=== PATIENT | female | born 1945 | race Caucasian/White ===

== ENCOUNTER 2017-07-04 14:10 | Observation (INO) ==
--- NOTE | 2017-07-04 14:32 | Emergency Department Note ---
Disposition Clinical Impression: CVA (cerebral vascular accident) Qualifiers: CVA mechanism: unspecified Qualified Code(s): I63.9 - Cerebral infarction, unspecified Disposition: Admitted As Inpatient Condition: Fair Referrals: Diana Giron MD [Primary Care Provider] - Forms: ED Satisfaction Letter Time of Disposition: 15:07 Neuro HPI - General Chief Complaint: ED Neuro Symptoms/Deficit Stated Complaint: Confusion Time Seen by Provider: 07/04/17 14:23 Source: patient, family Mode of arrival: ambulatory Limitations: no limitations Nursing Notes Reviewed: Yes Vital Signs Reviewed: Yes - History of Present Illness HPI Narrative: 72-year-old with acute onset of difficulty speaking with expressive aphasia at 11 AM. Denies weakness or numbness otherwise. Onset of Symptoms Date: 07/04/17 Onset of Symptoms Time: 11:00 Symptom Onset Unknown: No Timing confirmed by: spouse Location: speech History of same: No Severity: moderate Quality: other (Expressive aphasia) Symptoms Improving: No Improves with: none Worsens with: none Context: sudden onset On Anticoagulants: No Associated symptoms: Reports: denies other symptoms Treatments Prior to Arrival: none - Related Data Home Medications: Home Medications Medication Instructions Recorded Confirmed Aspirin 81 mg PO DAILY 04/12/16 04/12/16 Cetirizine HCl [Zyrtec] 10 mg PO HS 04/12/16 04/12/16 Chlorthalidone 25 mg PO DAILY 04/12/16 04/12/16 Estradiol [Estrace] 1 mg PO HS 04/12/16 04/12/16 Fluticasone Propionate Nasal 2 spr NS BID 04/12/16 04/12/16 [Flonase] Ipratropium [place] 1 spr NS DAILY PRN 04/12/16 04/12/16 Montelukast [Singulair] 10 mg PO HS 04/12/16 04/12/16 Potassium Chloride [Klor-Con 10] 10 meq PO TID 04/12/16 04/12/16 Allergies/Adverse Reactions: Allergies Allergy/AdvReac Type Severity Reaction Status Date / Time Tetracycline Allergy See Verified 04/12/16 09:10 Comments doxycycline AdvReac see comment Verified 04/12/16 09:10 All systems ED: reviewed and negative except as stated. Constitutional: Denies: fever, chills, weakness, weight change Eyes: Denies: eye pain, eye discharge, vision change ENT ED: Denies: ear pain, throat pain, dental pain, hearing loss, epistaxis, congestion, dysphagia Cardiovascular: Denies: chest pain, palpitations, dyspnea on exertion, edema, syncope Respiratory: Denies: cough, dyspnea, wheezes, hemoptysis, stridor Gastrointestinal: Denies: abdominal pain, nausea, vomiting, diarrhea, constipation, hematemesis, melena, hematochezia Genitourinary: Denies: dysuria, frequency, hematuria, discharge Musculoskeletal: Denies: back pain, neck pain, arthralgia, myalgia Integumentary: Denies: rash, abrasion, lesions Neurological: Reports: other (Suppressive aphasia). Denies: headache, weakness , numbness, paresthesias, confusion, abnormal gait, vertigo Psychiatric: Denies: anxiety, depression, suicidal thoughts, homicidal thoughts , auditory hallucinations, visual hallucinations Endocrine: Denies: fatigue Hematological/Lymphatic: Denies: easy bleeding, easy bruising Allergic/Immunologic: Denies: facial swelling, urticaria Past Medical History - Past Medical History Medical history: Reports: hyperlipidemia, hypertension Surgical history: Reports: appendectomy Psychiatric history: Reports: no psych history - Social History Smoking Status: Never smoker Smokeless Tobacco Status: No Alcohol use: Reports: none Drug use: Reports: none Physical Exam - General Limitations: no limitations General appearance: alert - Head Head exam: atraumatic, normocephalic, normal inspection - Eye Eye exam: Present: normal appearance, PERRL, EOMI - ENT ENT exam: normal exam, normal oropharynx, mucous membranes moist - Neck Neck exam: Present: normal inspection, full ROM, trachea midline - Chest Chest inspection: Present: normal inspection, symmetric chest wall rise - Respiratory Respiratory exam: Present: normal lung sounds bilaterally - Cardiovascular Cardiovascular exam: Present: regular rate, normal rhythm, normal heart sounds - Abdominal Exam Abdominal exam: Present: soft, Non-Tender. Absent: tenderness, distention, guarding, rebound, rigidity - Extremities Exam Extremities exam: Present: normal inspection, full ROM. Absent: tenderness, pedal edema - Expanded Lower Extremity Exam Neurovascular/Tendon exam: Absent: motor deficit, sensory deficit, tendon deficit Gait: observed and normal - Back Exam Back exam: Present: normal inspection, full ROM. Absent: tenderness - Neurological Exam Neurological exam: Present: alert, oriented X3. Absent: motor sensory deficit - Psychiatric Psychiatric exam: Present: normal affect, normal mood - Skin Skin exam: Present: warm, dry, intact, normal color Course - Consultations Consultation #1: Discussed with Dr. Colon radiology nothing acute on CT scan. Time: 14:51 Consultation #2: Stroke alert by [facility] patient is not a TPA candidate. Recommend CT A of the head and neck. Time: 15:03 Consultation #3: Discussed with Dr. Pittman, admit Time: 16:12 Vital Signs Temperature 97.4 F L 07/04/17 14:13 Pulse Rate 78 07/04/17 14:13 Respiratory Rate 18 07/04/17 14:13 Blood Pressure 181/108 07/04/17 14:13 O2 Sat by Pulse Oximetry 98 07/04/17 14:13 Temperature 97.4 F L 07/04/17 14:13 Pulse Rate 77 07/04/17 14:44 Respiratory Rate 18 07/04/17 14:44 Blood Pressure 170/87 07/04/17 14:44 O2 Sat by Pulse Oximetry 98 07/04/17 14:13 Oxygen Delivery Oxygen Delivery Room Air Neuro Symptoms/Deficit - Lab Data Result diagrams: 07/04/17 14:41 07/04/17 14:41 Lab Results 07/04/17 07/04/17 07/04/17 Range/Units 14:22 14:41 14:41 WBC 16.2 H (4.3-11.1) K/mcL RBC 4.38 (3.82-4.97) M/mcL Hgb 13.2 (11.5-15.4) g/dL Hct 39.3 (35.3-44.9) % MCV 89.7 (83.0-100.0) fL MCH 30.1 (28.0-33.3) pg MCHC 33.6 (31.6-35.5) g/dL RDW 12.6 (11.5-14.5) % Plt Count 394 (140-400) K/mcL MPV 10.2 (9.4-12.4) fL Immature Gran % 0.5 (0-4) % Seg Neutrophils % 74.7 % Lymphocytes % 14.5 % Monocytes % 7.9 % Eosinophils % 2.0 % Basophils % 0.4 % Neutrophils # 12.1 H (1.6-8.9) K/mcL Lymphocytes # 2.4 (0.6-4.6) K/mcL Monocytes # 1.3 (0.0-1.3) K/mcL Eosinophils # 0.3 (0.0-0.6) K/mcL Basophils # 0.1 (0.0-0.2) K/mcL PT 10.7 (9.4-12.1) Seconds INR 1.0 APTT 33.9 (26.0-36.0) Seconds Sodium (136-145) mEq/L Potassium (3.5-5.1) mEq/L Chloride (98-107) mEq/L Carbon Dioxide (23-29) mEq/L BUN (8-23) mg/dL Creatinine (0.60-1.20) mg/dL Est GFR ( Amer) (> 60) Est GFR (Non-Af Amer) (> 60) BUN/Creatinine Ratio (6-26) Glucose (70-105) mg/dL POC Glucose 112 H (58-89) mg/dL Calculated Osmolality (280-300) Calcium (8.6-10.3) mg/dL Troponin I (< 0.04) ng/mL 07/04/17 Range/Units 14:41 WBC (4.3-11.1) K/mcL RBC (3.82-4.97) M/mcL Hgb (11.5-15.4) g/dL Hct (35.3-44.9) % MCV (83.0-100.0) fL MCH (28.0-33.3) pg MCHC (31.6-35.5) g/dL RDW (11.5-14.5) % Plt Count (140-400) K/mcL MPV (9.4-12.4) fL Immature Gran % (0-4) % Seg Neutrophils % % Lymphocytes % % Monocytes % % Eosinophils % % Basophils % % Neutrophils # (1.6-8.9) K/mcL Lymphocytes # (0.6-4.6) K/mcL Monocytes # (0.0-1.3) K/mcL Eosinophils # (0.0-0.6) K/mcL Basophils # (0.0-0.2) K/mcL PT (9.4-12.1) Seconds INR APTT (26.0-36.0) Seconds Sodium 136 (136-145) mEq/L Potassium 3.3 L (3.5-5.1) mEq/L Chloride 100 (98-107) mEq/L Carbon Dioxide 28 (23-29) mEq/L BUN 17 (8-23) mg/dL Creatinine 0.60 (0.60-1.20) mg/dL Est GFR ( Amer) > 60 (> 60) Est GFR (Non-Af Amer) > 60 (> 60) BUN/Creatinine Ratio 28 H (6-26) Glucose 106 H (70-105) mg/dL POC Glucose (58-89) mg/dL Calculated Osmolality 284 (280-300) Calcium 9.6 (8.6-10.3) mg/dL Troponin I < 0.03 (< 0.04) ng/mL NIH Stroke Scale - Level of Consciousness LOC: Alert - LOC Questions LOC Questions: Answers both correctly - LOC Commands LOC Commands: Performs both correctly - Best Gaze Best Gaze: Normal - Visual Visual: No visual loss - Facial Palsy Facial Palsy: Normal - Motor Arms Motor Arm-Left: No drift for 10 seconds Motor Arm-Right: No drift for 10 seconds - Motor Legs Motor Leg-Left: No drift for 5 seconds Motor Leg-Right: No drift for 5 seconds - Limb Ataxia Limb Ataxia: Normal, No Ataxia - Sensory Sensory: Normal - Best Language Best Language: Mild to moderate aphasia. Examiner can identify picture from response - Dysarthria Dysarthria: Normal - Extinction and Inattention Extinction and Inattention: Normal - NIHSS Total Score NIHSS Total Score: 1 TPA Checklist - Eligibilty for IV tPA 1. LKW equal to or less than 4.5 hours be before treatment: Yes - LKW: 3-4.5 hrs Add. Warnings/Precautions Patient/family understanding: The patient/family members have been counseled and understood the risk, benefit , and alternatives of treatment. Critical Care Time Critical Care Time: Yes Total Critical Care Time: 35 Attestation: The high probability of a clinically significant, sudden or life threatening deterioration of the [neurological] system(s) required my full and direct attention, intervention and personal management. The aggregate critical care time was [35] minutes. This time is in addition to time spent performing reported procedures but includes the following: [x] Data Review and interpretation [x] Patient assessment and monitoring of vital signs [x] Documentation [x] Medication orders and management
[2017-07-04 14:53] LABS: Basophils # 0.1 K/mcL (0.0-0.2); Basophils % 0.4 %; Eosinophils # 0.3 K/mcL (0.0-0.6); Hematocrit 39.3 % (35.3-44.9); Hemoglobin 13.2 g/dL (11.5-15.4); Immature Granulocytes % 0.5 % (0-4); Lymphocytes # 2.4 K/mcL (0.6-4.6); Lymphocytes % 14.5 %; Mean Corpuscular HGB Conc 33.6 g/dL (31.6-35.5); Mean Corpuscular Hemoglobin 30.1 pg (28.0-33.3); Mean Corpuscular Volume 89.7 fL (83.0-100.0); Mean Platelet Volume 10.2 fL (9.4-12.4); Monocytes # 1.3 K/mcL (0.0-1.3); Monocytes % 7.9 %; Neutrophils # 12.1 K/mcL (1.6-8.9); Platelet Count 394 K/mcL (140-400); Red Blood Count 4.38 M/mcL (3.82-4.97); Red Cell Distribution Width 12.6 % (11.5-14.5); Segmented Neutrophils % 74.7 %
[2017-07-04 15:04] LABS: Prothrombin Time 10.7 Seconds (9.4-12.1)
[2017-07-04 15:07] LABS: Activated Partial Thrombo Time 33.9 Seconds (26.0-36.0)
[2017-07-04 15:11] LABS: BUN/Creatinine Ratio 28 (6-26); Blood Urea Nitrogen 17 mg/dL (8-23); Calcium 9.6 mg/dL (8.6-10.3); Carbon Dioxide 28 mEq/L (23-29); Chloride 100 mEq/L (98-107); Glucose 106 mg/dL (70-105); Osmolality,Calculated 284 (280-300); Potassium 3.3 mEq/L (3.5-5.1); Sodium 136 mEq/L (136-145); Troponin I < 0.03 ng/mL (< 0.04); eGFR For African Americans > 60 (> 60); eGFR For Non-African Americans > 60 (> 60)
[2017-07-04 17:03] LABS: Bilirubin,Urine Negative (Negative); Blood,Urine Negative (Negative); Clarity,Urine Clear (Clear); Color,Urine Yellow (Yellow); Glucose,Urine (UA) Normal (Normal); Ketones,Urine Negative (Negative); Leukocyte Esterase,Urine Negative (Negative); Nitrite,Urine Negative (Negative); Protein,Urine Negative (Neg-Trace); Specific Gravity,Urine 1.019 (1.010-1.025); Urobilinogen,Urine Normal (Normal)
[2017-07-04] MEDS ORDERED: Naloxone 0.4 MG/ML INJ IVP PRN (17:59)
[2017-07-04] MEDS ORDERED: Acetaminophen 325 MG TABLET PO PRN (17:59)
[2017-07-04] MEDS ORDERED: Potassium Chloride Elixir 20 MEQ/15 ML UDC PO ONE (18:02)
--- NOTE | 2017-07-04 18:03 | Internal Med History&Physical ---
Date of Encounter: 07/04/17 Time of Encounter: 17:15 Internal Medicine - H&P: HPI Chief complaint: Word-finding difficulty Admitted From: Home Plans for Post Hospital Care: Home History of present illness: Ms. Ken is a 72 year old female with h/o- HTN and HL, who was brought in with c /o- difficulty speaking since this morning. Patient had a rough night due to severe dry cough and so her let her sleep for a few hours after waking up, after which patient was trying to talk to her but could not get the words out. She was noted to be searching for words. No focal weakness, headache, blurred vision, dysphagia, slurred speech or facial droop. On further questioning, her also reports that she had paresthesias in her hands yesterday and had trouble writing a cheque. Last known time of being normal cannot be pinponted. No fever/chills, chest pain, dyspnea, or any other symptoms. Past Med Surg Social Fam HX - Past Medical History Medical history: hyperlipidemia, hypertension Psychiatric history: no psych history - Past Surgical History Surgical History: appendectomy, hysterectomy, orthopedic, other (left rotator cuff repair surgery) - Social History Smoking Status: Never smoker Smokeless Tobacco Status: No Alcohol use: none Drug use: none Occupational status: retired Current living situation: Home, With Family Activity Level: Independent ambulation Recent Out of Country Travel Within the Last 8 Weeks: No Exposure or Possible Exposure to Illness During Travel: No - Family History Mother Name: Erin Alejandro Living Status: Age at : 69 Cause of : heart attack Hx Family Cardiac Disorders: Yes Internal Medicine - H&P: Meds Aspirin 81 mg PO DAILY 04/12/16 [History] Cetirizine HCl [Zyrtec] 10 mg PO HS 04/12/16 [History] Chlorthalidone 25 mg PO DAILY 04/12/16 [History] Estradiol [Estrace] 1 mg PO HS 04/12/16 [History] Fluticasone Propionate Nasal [Flonase] 2 spr NS BID 04/12/16 [History] Ipratropium [place] 1 spr NS DAILY PRN 04/12/16 [History] Montelukast [Singulair] 10 mg PO HS 04/12/16 [History] Potassium Chloride [Klor-Con 10] 20 meq PO BID 04/12/16 [History] Pravastatin Sodium [Pravachol] 20 mg PO HS 07/04/17 [History] 3 Allergy/AdvReac Type Severity Reaction Status Date / Time Tetracycline Allergy See Verified 04/12/16 09:10 Comments doxycycline AdvReac see comment Verified 04/12/16 09:10 All Systems PM: A 10-system review of systems was performed and is negative for pertinent findings except as documented above in the HPI. - Constitutional Constitutional: no chills, no fever(s), no night sweats - EENT Eyes: no change in vision, no discharge, no pain, no photophobia Ears: no ear discharge, no ear pain, no tinnitus Nose, mouth and throat: no dysphagia, no nasal discharge, no neck pain, no sore throat - Cardiovascular Cardiovascular ROS IM: no chest pain, no diaphoresis, no dyspnea, no lightheadedness, no palpitations, no syncope - Respiratory Respiratory: no cough, no dyspnea, no wheezing, no excessive phlegm production - Gastrointestinal Gastrointestinal: no abdominal pain, no diarrhea, no hematemesis, no hematochezia, no melena, no nausea, no vomiting - Genitourinary Genitourinary: no change in urinary stream, no dysuria, no flank pain, no hematuria - Musculoskeletal Musculoskeletal ROS IM: no numbness, no tingling - Integumentary Integumentary IM: no rash, no unusual bruising - Neurological Neurological ROS: abnormal speech, confusion, paresthesias - Hematologic/Lymphatic Hematologic/Lymphatic: no easy bruising - Constitutional Vitals: Temp Pulse Resp BP Pulse Ox 98 F 72 18 144/96 98 07/04/17 14:59 07/04/17 17:03 07/04/17 17:03 07/04/17 17:03 07/04/17 17:03 General appearance: Present: A&O X 3, answers questions appropriately - Respiratory Respiratory exam: Present: CTAB. Absent: accessory muscle use, rales, rhonchi, wheezes - Cardiovascular Cardiovascular exam: Present: RRR, +S1, +S2. Absent: diastolic murmur, gallop, rubs, systolic murmur - GI/Abdominal GI/Abdominal exam: Present: normal bowel sounds, soft, no peritoneal signs. Absent: distended, tenderness - Extremities Exam Extremities exam: Present: full ROM, warm, radial pulses palpable and symmetrical. Absent: calf tenderness, cyanotic, pedal edema - Neurological Exam Neurological exam: Present: CN II-XII intact (mild word-finding difficulty and expressive aphasia), oriented X3, no focal deficits. Absent: pronater drift, facial droop, speech deficit - Skin Skin exam: Present: dry, intact Internal Med - H&P Results - Labs CBC & Chem 7: 07/04/17 14:41 07/04/17 14:41 - Assessment and plan (1) Aphasia Current Visit: Yes Status: Acute Assessment and plan: TIA vs CVA; CT head in the ER showed no acute abnormality. Neurology Stroke consult was completed by [facility], recommend no tPA, check CTA head and neck. CTA of the head showed no acute abnormality, CTA neck shows narrowing of the carotid artery to 4 mm (30%) and 5 mm on right (20%). Will check Carotid Doppler ultrasound; check TTE and consult Neurology. Check lipid panel. Continue ASA and statin. Close neurological monitoring; (2) Essential hypertension Current Visit: Yes Status: Chronic Assessment and plan: BP was noted to be elevated at the time of triage; continue to monitor closely; resume Chlorthalidone; - Time Spent With Patient Total time spent is greater than 50% in coordination of care (as documented) at patient's floor/unit and/or counseling patient:
[2017-07-04] MEDS: Fluticasone Propionate Nasal 50 MCG/SPRAY BOTTLE NS SCH (20:22)
[2017-07-04] MEDS: *HR* Heparin 5,000 UNIT/ML VIAL SQ SCH (22:09)
[2017-07-05 01:26] LABS: Basophils % 0.2 %; Eosinophils # 0.1 K/mcL (0.0-0.6); Eosinophils % 1.1 %; Hemoglobin 11.7 g/dL (11.5-15.4); Immature Granulocytes % 0.3 % (0-4); Lymphocytes # 2.8 K/mcL (0.6-4.6); Lymphocytes % 23.3 %; Mean Corpuscular HGB Conc 33.4 g/dL (31.6-35.5); Mean Corpuscular Hemoglobin 29.5 pg (28.0-33.3); Mean Corpuscular Volume 88.4 fL (83.0-100.0); Mean Platelet Volume 10.6 fL (9.4-12.4); Monocytes % 8.1 %; Neutrophils # 8.1 K/mcL (1.6-8.9); Platelet Count 403 K/mcL (140-400); Red Blood Count 3.96 M/mcL (3.82-4.97); Red Cell Distribution Width 12.7 % (11.5-14.5)
[2017-07-05 01:47] LABS: BUN/Creatinine Ratio 19 (6-26); Blood Urea Nitrogen 11 mg/dL (8-23); Calcium 9.3 mg/dL (8.6-10.3); Carbon Dioxide 27 mEq/L (23-29); Chloride 99 mEq/L (98-107); Chol/HDL Ratio 2.2 (0-4.9); Cholesterol 169 mg/dL (< 200); Glucose 110 mg/dL (70-105); HDL Cholesterol 77 mg/dL (40-59); LDL Cholesterol,Calculated 72 mg/dL (0-99); Osmolality,Calculated 280 (280-300); Potassium 3.2 mEq/L (3.5-5.1); Sodium 135 mEq/L (136-145); Triglycerides 100 mg/dL (< 150); eGFR For African Americans > 60 (> 60); eGFR For Non-African Americans > 60 (> 60)
[2017-07-05] MEDS: *HR* Heparin 5,000 UNIT/ML VIAL SQ SCH ×3 (05:43→21:18)
[2017-07-05] MEDS ORDERED: Potassium Chloride Elixir 20 MEQ/15 ML UDC PO ONE (08:42)
--- NOTE | 2017-07-05 09:15 | Neurology - Consult Note ---
Date of Encounter: 07/05/17 Time of Encounter: 09:11 Assessment and Plan (1) Mental status change Current Visit: Yes Status: Acute Patient had experienced a brief episode of speech difficulty that has resolved. According to the family her speech and affect are just now getting back to normal. She really did not experience any weakness of the upper or lower extremities. However, it is possible that she may have experienced an ischemic event involving the left cerebral hemisphere. Particularly I would like to rule out the possibility of an embolic event involving the left temporal lobe, which could possibly spare motor and sensory function and affect only speech. I will therefore obtain MRI scan of the brain with diffusion images and I am very interested to review the results of the echocardiogram. I will also obtain an EEG. Her blood pressure was extremely elevated at the time of admission where the reading was 181/108. This might also resulted in an ischemic event. If the stroke workup is unrevealing then I would recommend pursuing an underlying infectious process. She has been experiencing excessive coughing for about 5 days or so. Further recommendations will be made pending the test results. Recommend stroke protocol orders in the interim workup. Qualifiers: Qualified Code(s): R41.82 - Altered mental status, unspecified History of Present Illness HPI: Ms. Ken is a 72 year old female who is being seen for neurologic consultation secondary to an episode of confusion and speech difficulty. It seems however that all of her more recent problems were precipitated by her respiratory symptoms. She has been experiencing a progressive cough for about 5 days or so now. Her daughter informs me that over the weekend she had difficulty writing a check and seem to be a bit confused. However she had a severe dry cough the night before admission and she awakened to go downstairs and sleep in a chair because she was uncomfortable. She awakened the next morning however without difficulty and then somewhere around 11:00 in the afternoon on the day of admission she became acutely confused and had some difficulty with speech apparently she had symptoms of expressive aphasia. She denies any numbness tingling or weakness of the arms or legs. Denies any visual changes she does have a headache associated with the excessive coughing she has chronic neck pain. However this does not present meningitis/encephalitis-type picture. Currently she is back to her normal baseline. She is lucid and able to give her own history. I did ask if she taking any [id number] cold remedies and she denies this. She was hypertensive upon admission blood pressure was 181 /108. She did have a CTA of the head and neck which revealed nonstenotic plaquing. Echocardiogram was actually just completed a few moments ago the interpretation is pending. Apparently the [facility] stroke telemonitoring network was accessed and they determined she was not a candidate for TPA. She has not had an MRA. She denies any history of chest pain or any cardiac problems. Denies any history of atrial fibrillation. WBCs were elevated upon admission, urinalysis was unremarkable. Past Med Surg Social Fam HX - Past Medical History Medical history: hyperlipidemia, hypertension Psychiatric history: no psych history - Past Surgical History Surgical History: appendectomy, hysterectomy, orthopedic, other (left rotator cuff repair surgery) - Social History Smoking Status: Never smoker Smokeless Tobacco Status: No Alcohol use: none Drug use: none - Family History Mother Name: Erin Alejandro Living Status: Age at : 69 Cause of : heart attack Hx Family Cardiac Disorders: Yes Medications and Allergies Aspirin 81 mg PO DAILY 04/12/16 [History] Cetirizine HCl [Zyrtec] 10 mg PO HS 04/12/16 [History] Chlorthalidone 25 mg PO DAILY 04/12/16 [History] Estradiol [Estrace] 1 mg PO HS 04/12/16 [History] Fluticasone Propionate Nasal [Flonase] 2 spr NS BID 04/12/16 [History] Ipratropium [place] 1 spr NS DAILY PRN 04/12/16 [History] Montelukast [Singulair] 10 mg PO HS 04/12/16 [History] Potassium Chloride [Klor-Con 10] 20 meq PO BID 04/12/16 [History] Pravastatin Sodium [Pravachol] 20 mg PO HS 07/04/17 [History] 3 Allergy/AdvReac Type Severity Reaction Status Date / Time Tetracycline Allergy See Verified 04/12/16 09:10 Comments doxycycline AdvReac see comment Verified 04/12/16 09:10 All Systems: The remainder of the systems were reviewed and are negative Review of Systems: 10 point review of systems is consistent with a history of present illness and otherwise negative. 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, hip flexors, tibialis Anterior, quadriceps, toe extension (EHL), plantarflexion Motor examination - left side: 55: deltoids, biceps, triceps, wrist flexion, wrist extension, hip flexors, polishing machine operator helper, quadriceps, tibialis Anterior, toe extension (EHL), plantarflexion Detailed sensory examination: intact Reflexes: Biceps: 2+, Triceps: 2+, Brachioradialis: 2+, Patella: 2+, Achilles: 2 + Mental Status Examination: awake, alert, oriented to person, oriented to place, oriented to time, follows commands appropriately, answers questions appropriately, no agnosia, no aphasia, no aproxia Cranial nerve examination: PERRL, EOMI, visual kenyon intact, corneal reflexes brisk symmetrically, sensory to face intact, mastication intact, no facial asymmetry is present, no dysarthria, hearing is intact symmetrically, soft palate elevates bilaterally upon phonation, gag reflex intact, flexes SCM and trapezius muscles symmetrically with full power, tongue protrudes midline, no atrophy or facial fasiculations present Cerebellar examination: no dysmetria, performs finger to nose and heel to dc symmetrically without ataxia, no gait ataxia, no truncal ataxia, no difficulty with rapid alternating movements Results - Laboratory Findings CBC and BMP: 07/05/17 00:35 07/05/17 00:35 Abnormal lab findings: Abnormal lab results WBC 12.0 K/mcL (4.3-11.1) H 07/05/17 00:35 Hct 35.0 % (35.3-44.9) L 07/05/17 00:35 Plt Count 403 K/mcL (140-400) H 07/05/17 00:35 Sodium 135 mEq/L (136-145) L 07/05/17 00:35 Potassium 3.2 mEq/L (3.5-5.1) L 07/05/17 00:35 Creatinine 0.57 mg/dL (0.60-1.20) L 07/05/17 00:35 Glucose 110 mg/dL (70-105) H 07/05/17 00:35 POC Glucose 112 mg/dL (58-89) H 07/04/17 14:22 HDL Cholesterol 77 mg/dL (40-59) H 07/05/17 00:35 Consult Discharge Plan - Plan Referrals: Diana Giron MD [Primary Care Provider] -
[2017-07-05] MEDS: POTASSIUM 10 MEQ PO SCH ×2 (09:27→21:19)
[2017-07-05] MEDS: Aspirin 81 MG TAB.CHEW PO SCH (09:27)
[2017-07-05] MEDS: Fluticasone Propionate Nasal 50 MCG/SPRAY BOTTLE NS SCH ×2 (09:30→21:19)
--- NOTE | 2017-07-05 17:09 | Internal Med Progress Note ---
Date of Encounter: 07/05/17 Time of Encounter: 17:06 - Assessment and plan (1) Aphasia Current Visit: Yes Status: Acute Assessment and plan: positive for CVA per MRI which reported several small acute infarcts primarily involving the left frontal lobe and the vascular distribution of the left middle cerebral artery compatible with acute infarcts, there is a symmetric stenosis noted in the proximal left internal carotid artery on the previous CTA of the neck. This could also be related to small emboli. Ossifications along the left cerebral convexity dura and anterior intrahemispheric falx which may be related to an ossified meningioma. Mild chronic microvascular white matter ischemic disease. CT head in the ER showed no acute abnormality. Neurology Stroke consult was completed by [facility], recommend no tPA CTA head and neck completed and reviewed. CTA of the head showed no acute abnormality, CTA neck shows narrowing of the carotid artery to 4 mm (30%) and 5 mm on right (20%). Carotid Doppler ultrasound report pending TTE reviewed with LVEF 60%, mild left ventricular diastolic dysfunction, normal right ventricular structure and function, mild to moderate tricuspid regurg, mild pulmonary on ache regurg, borderline pulmonary hypertension, no evidence of PFO with agitated saline contrast. All wall segments showed normal motion on rest echo Neurology following Lipid panel reviewed GALINA schedule for am Continue ASA and statin. Close neurological monitoring with neuro checks (2) Essential hypertension Current Visit: Yes Status: Chronic Assessment and plan: BP was noted to be elevated in the ER Continue to monitor closely Rresume Chlorthalidone (3) Cough Current Visit: Yes Status: Acute Assessment and plan: Chest x-ray with no acute pulmonary disease Chest x-ray impression described distal left clavicle ostial laces in cortical step-off involving left humeral head. This is secondary to previous surgical procedure Mucinex added for cough We will also add Tessalon patient afrebile with decreasing WBC (4) Hypokalemia Current Visit: Yes Status: Acute Assessment and plan: Replaced and follow labs - Time Spent With Patient Total time spent is greater than 50% in coordination of care (as documented) at patient's floor/unit and/or counseling patient: - Subjective Interval history: Patient is sitting up in bed and her is at the bedside. Her aphasia has resolved and word finding has returned to normal. She denies any headaches shortness of breath chest pain or fever chills or changes in bowel or bladder. Complains of cough that has been ongoing for 3-5 days. - Constitutional Vitals: Temp Pulse Resp BP Pulse Ox 97.6 F 77 15 155/84 98 07/05/17 15:40 07/05/17 15:40 07/05/17 15:40 07/05/17 15:40 07/05/17 15:40 General appearance: Present: cooperative, A&O X 3, pleasant, answers questions appropriately - Head Head exam: Present: atraumatic, normocephalic - Eye Eye exam: Present: normal appearance, PERRL, conjuntiva pink, sclera anicteric Pupils: Present: PERRL - Neck Neck exam general surgery: Present: supple, trachea midline. Absent: lymphadenopathy, tenderness - Respiratory Respiratory exam: Present: CTAB. Absent: accessory muscle use, rales, rhonchi, wheezes Additional comments: Lungs are clear with no wheezes or bronchospasm. She did experience a dry cough during the examination - Cardiovascular Cardiovascular exam: Present: RRR, +S1, +S2. Absent: diastolic murmur, gallop, rubs, systolic murmur - GI/Abdominal GI/Abdominal exam: Present: normal bowel sounds, soft, no peritoneal signs. Absent: distended, tenderness - Extremities Exam Extremities exam: Present: full ROM, warm, radial pulses palpable and symmetrical. Absent: calf tenderness, cyanotic, pedal edema - Neurological Exam Neurological exam: Present: alert, CN II-XII intact, oriented X3, no focal deficits. Absent: pronater drift, facial droop, speech deficit - Skin Skin exam: Present: dry, intact, normal color, warm Internal Medicine: Result - Labs CBC & Chem 7: 07/05/17 00:35 07/05/17 00:35 Labs: Short CBC 07/05/17 Range/Units 00:35 WBC 12.0 H (4.3-11.1) K/mcL Hgb 11.7 D (11.5-15.4) g/dL Hct 35.0 L (35.3-44.9) % Plt Count 403 H (140-400) K/mcL Neutrophils # 8.1 (1.6-8.9) K/mcL BMP 07/05/17 00:35 Sodium 135 L Potassium 3.2 L Chloride 99 Carbon Dioxide 27 BUN 11 Creatinine 0.57 L Glucose 110 H Calcium 9.3 Cardiac Enzymes 07/04/17 07/05/17 07/05/17 Range/Units 18:40 00:35 07:08 Troponin I < 0.03 0.03 < 0.03 (< 0.04) ng/mL - ABG Interpretation ABG results: PT/INR, D-dimer PT 10.7 Seconds (9.4-12.1) 07/04/17 14:41 - Impressions Impressions Brain MRI 07/05/17 09:25 IMPRESSION: 1. Acute infarcts are noted in the left frontal lobe, in the vascular distribution of the left middle cerebral artery. There is asymmetric stenosis noted in the proximal left internal carotid artery on the previous CTA of the neck. This could also be related to small emboli. 2. Ossifications along the left cerebral convexity dura and anterior interhemispheric falx which may be related to an ossified meningioma. 3. Mild chronic microvascular white matter ischemic disease. D/ / 07/05/2017 10:57:34 Clay Boland MD / [facility] Interpreting Provider: Clay Boland MD Echocardiogram 07/05/17 18:00 Impressions: LVEF 60%. Mild left ventricular diastolic dysfunction. Normal right ventricular structure and function. Mild-moderate tricuspid regurgitation. Mild pulmonic regurgitation. Borderline pulmonary hypertension. No evidence of PFO with agitated saline contrast. Left Ventricular Wall Motion: Rest Echo Findings All wall segments showed normal motion. Findings: Study Quality * Technically adequate exam. ECG Findings * Normal sinus rhythm. Left Ventricle * LVEF 60%. * Normal LV chamber size, wall thickness and function. * Mild left ventricular diastolic dysfunction. Right Ventricle * Normal right ventricular structure and function. Left Atrium * Moderately dilated left atrium. Right Atrium * Mildly dilated right atrium. Mitral Valve * Normal mitral valve structure. * No mitral stenosis. * Mild-moderate mitral annular calcification * Trace mitral regurgitation. Aortic Valve * No aortic regurgitation. * Trileaflet aortic valve. * No aortic stenosis. Tricuspid Valve * Normal tricuspid valve structure. * Mild-moderate tricuspid regurgitation. * Estimated RA pressure is 3 mmHg. * Estimated RVSP is 35 mmHg. * Borderline pulmonary hypertension. Pulmonic Valve * Pulmonic valve is not well visualized. * No pulmonic stenosis. * Mild pulmonic regurgitation. Pulmonary Artery * Pulmonary artery not well visualized. Aorta * Normally sized aortic root. Pericardium * There is no pericardial effusion present. Interatrial Septum * No evidence of PFO by color Doppler. * No evidence of PFO with agitated saline contrast. IVC * Normal IVC dimensions and inspiratory collapse. Consult Discharge Plan - Plan Referrals: Diana Giron MD [Primary Care Provider] -
[2017-07-06 04:58] LABS: Hematocrit 34.3 % (35.3-44.9); Hemoglobin 11.8 g/dL (11.5-15.4); Mean Corpuscular HGB Conc 34.4 g/dL (31.6-35.5); Mean Corpuscular Hemoglobin 30.6 pg (28.0-33.3); Mean Corpuscular Volume 89.1 fL (83.0-100.0); Mean Platelet Volume 10.6 fL (9.4-12.4); Platelet Count 400 K/mcL (140-400); Red Blood Count 3.85 M/mcL (3.82-4.97); Red Cell Distribution Width 12.5 % (11.5-14.5)
[2017-07-06] MEDS: *HR* Heparin 5,000 UNIT/ML VIAL SQ SCH ×2 (05:01→13:30)
[2017-07-06 05:08] LABS: BUN/Creatinine Ratio 22 (6-26); Blood Urea Nitrogen 11 mg/dL (8-23); Calcium 9.2 mg/dL (8.6-10.3); Carbon Dioxide 27 mEq/L (23-29); Chloride 103 mEq/L (98-107); Glucose 109 mg/dL (70-105); Osmolality,Calculated 282 (280-300); Potassium 3.2 mEq/L (3.5-5.1); Sodium 136 mEq/L (136-145); eGFR For African Americans > 60 (> 60); eGFR For Non-African Americans > 60 (> 60)
[2017-07-06] MEDS ORDERED: 0.9 % Sodium Chloride 500 ML IVC ONE (08:51)
[2017-07-06] MEDS ORDERED: Tetracaine/Benzocaine/Butamben 200MG/SPRAY (100SPY/BOT) MM ONE (08:51)
[2017-07-06] MEDS: *HR* Midazolam HCl 5 MG/5 ML VIAL IVP PRN ×3 (09:55→10:05)
[2017-07-06] MEDS: *HR* FentaNYL (PF) 100 MCG/2 ML VIAL IVP PRN ×2 (09:55→10:00)
[2017-07-06] MEDS: Fluticasone Propionate Nasal 50 MCG/SPRAY BOTTLE NS SCH (11:23)
[2017-07-06] MEDS: Aspirin 81 MG TAB.CHEW PO SCH (11:23)
[2017-07-06] MEDS: POTASSIUM 10 MEQ PO SCH (11:24)
[2017-07-06 15:26] VITALS: BP 173/95
--- NOTE | 2017-07-06 15:30 | Neurology Progress Note ---
Date of Encounter: 07/06/17 Time of Encounter: 15:28 Assessment and Plan (1) CVA (cerebral vascular accident) Current Visit: Yes Status: Acute Patient has in fact experienced 2 small areas of acute infarction involving the left cerebral hemisphere. Embolism is suspected. However a transthoracic echocardiogram was negative. The GALINA has been completed however the interpretation is pending. CTA revealed nonstenotic plaquing of the arteries in the head and neck. At this point if the GALINA is negative then I would recommend maintaining Plavix. If the GALINA reveals a source of clot or atheroma then I would recommend starting her on anticoagulation. I will reevaluate her at your request. Qualifiers: CVA mechanism: unspecified Qualified Code(s): I63.9 - Cerebral infarction, unspecified Subjective Interval history: Chart was reviewed, the patient was seen and examined. She has had no further strokelike symptoms since admission. Thus far her stroke workup has been negative. The results of the transesophageal echocardiogram are still pending. She is anxious to go home. Her neurologic examination is completely normal. Transthoracic echocardiogram was negative. CTA of the head and neck revealed nonstenotic plaquing. MRI scan of the brain did not reveal 2 small areas of infarct involving the left cerebral hemisphere. Objective - Constitutional Vitals: Temp Pulse Resp BP Pulse Ox 97.8 F 74 16 173/95 97 07/06/17 15:25 07/06/17 15:25 07/06/17 15:25 07/06/17 15:25 07/06/17 15:25 - Neurological Exam Motor Examination: Present: full strength in all major muscle groups Motor examination - right side: 5/5: deltoids, biceps, triceps, wrist flexion, wrist extension, tag clerk, hip flexors, tibialis Anterior, quadriceps, toe extension (EHL), plantarflexion Motor examination - left side: 5/5: deltoids, biceps, triceps, wrist flexion, wrist extension, hip flexors, tag clerk, quadriceps, tibialis Anterior, toe extension (EHL), plantarflexion Sensation intact: Present: intact Mental Status Examination: Present: awake, alert, oriented to person, oriented to place, oriented to time, follows commands appropriately, answers questions appropriately, no agnosia, no aphasia, no aproxia Cranial nerve examination: Present: PERRL, EOMI, visual kenyon intact, corneal reflexes brisk symmetrically, sensory to face intact, mastication intact, no facial asymmetry is present, no dysarthria, hearing is intact symmetrically, soft palate elevates bilaterally upon phonation, gag reflex intact, flexes SCM and trapezius muscles symmetrically with full power, tongue protrudes midline, no atrophy or facial fasiculations present Cerebellar examination: Present: no dysmetria, performs finger to nose and heel to dc symmetrically without ataxia, no gait ataxia, no truncal ataxia, no difficulty with rapid alternating movements Results - Laboratory Findings CBC and BMP: 07/06/17 04:25 07/06/17 04:25 Abnormal lab findings: Abnormal lab results Hct 34.3 % (35.3-44.9) L 07/06/17 04:25 Potassium 3.2 mEq/L (3.5-5.1) L 07/06/17 04:25 Creatinine 0.51 mg/dL (0.60-1.20) L 07/06/17 04:25 Glucose 109 mg/dL (70-105) H 07/06/17 04:25 POC Glucose 112 mg/dL (58-89) H 07/04/17 14:22 HDL Cholesterol 77 mg/dL (40-59) H 07/05/17 00:35 Consult Discharge Plan - Plan Referrals: Diana Giron MD [Primary Care Provider] -
--- NOTE | 2017-07-06 17:13 | Discharge Summary ---
- NOTES TO OUTPATIENT PROVIDER Notes to Outpatient Provider: F/U PCP 5 to 7 days. F/U neurology in 4 weeks Orders not resulted at time of discharge: Pending orders 07/07/17 04:00 BMP [Basic Metabolic Panel] AM 0400 Complete Blood Count w/o Diff [HEME] AM 0400 Date of Encounter: 07/06/17 Time of Encounter: 17:11 - Discharge Diagnosis (1) Aphasia Priority: Primary Status: Resolved (2) Essential hypertension Priority: Primary Status: Chronic (3) Cough Priority: Primary Status: Acute (4) Hypokalemia Priority: Primary Status: Resolved (5) CVA (cerebral vascular accident) Priority: Primary Status: Acute Qualifiers: CVA mechanism: embolism Precerebral and cerebral artery: unspecified precerebral artery Qualified Code(s): I63.10 - Cerebral infarction due to embolism of unspecified precerebral artery Hospital course: Ms. 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 She had been coughing and her what her sleep a few hours and after waking up he noticed that she was trying to talk get words out. She was having trouble finding words. Should no focal weakness headache or blurred vision. No distal nausea slurred speech or facial droop. Her reported she had some paresthesia in her hands the day before and trouble writing a check. Last known time being normal could not be pinpointed she had no recent illness with no fevers chills chest pain dyspnea or other symptoms. She does have a persistent dry cough. She is a nonsmoker. MRI of the brain was obtained which showed a left hemispheric event with 2 small areas of infarct identified. Suspected embolism as cause. EEG was not necessary. A GALINA was completed to rule out embolic source and was negative. The patient was therefore placed on Plavix. CTA of the head and neck revealed nonstenotic plaquing. Echocardiogram was completed a few months ago and repeated again this admission which revealed an LVEF of 60%. Mild left ventricular diastolic function. Normal left ventricular structure and function. Mild to moderate tricuspid regurg with mild pulmonary regurgitation. Borderline pulmonary hypertension but no evidence of PFO with agitated saline contrast. All wall segments showed normal motion at rest echo. CTA of the head and neck revealed nonstenotic moderate plaquing. Vital signs have been stable although her blood pressure was a little elevated this afternoon. We will resume her home medications and have her follow-up with her primary care doctor in 5-7 days. She will follow- up with neurology in one month. She has returned to her baseline with no deficits noted. She is alert and oriented appropriate and answers questions appropriately with no aphasia or gait disturbance. No visual field issues and sensorium to her face is intact. Discussed discharge on Plavix and to stop her aspirin. Discussed her follow-up. Discussed findings of her testing. She has no questions and is to be discharged home with her . Discharge discussed with: patient, family, nurse, social work, industrial methods consultant - Time Spent with Patient Total time spent providing and/or coordinating discharge services: Less than 30 minutes - Discharge Medications Prescriptions: Benzonatate [Tessalon] 200 mg PO TID PRN 7 Days #21 capsule PRN Reason: Cough Clopidogrel [Plavix] 75 mg PO DAILY 30 Days #30 tablet Home Medications: Cetirizine HCl [Zyrtec] 10 mg PO HS 04/12/16 [History] Chlorthalidone 25 mg PO DAILY 04/12/16 [History] Estradiol [Estrace] 1 mg PO HS 04/12/16 [History] Fluticasone Propionate Nasal [Flonase] 2 spr NS BID 04/12/16 [History] Ipratropium Manson 1 spr NS DAILY PRN 04/12/16 [History] Montelukast [Singulair] 10 mg PO HS 04/12/16 [History] Potassium Chloride [Klor-Con 10] 20 meq PO BID 04/12/16 [History] Pravastatin Sodium [Pravachol] 20 mg PO HS 07/04/17 [History] Benzonatate [Tessalon] 200 mg PO TID PRN 7 Days #21 capsule 07/06/17 [Rx] Clopidogrel [Plavix] 75 mg PO DAILY 30 Days #30 tablet 07/06/17 [Rx] GuaiFENesin ER [Mucinex] 600 mg PO BID tbbp.12hr 07/06/17 [Rx] Allergies/Adverse Reactions: 3 Allergy/AdvReac Type Severity Reaction Status Date / Time Tetracycline Allergy See Verified 04/12/16 09:10 Comments doxycycline AdvReac see comment Verified 04/12/16 09:10 Date of admission: 07/04/17 17:01 Primary care physician: Diana Giron, Consults: 07/04/17 18:01 Consult to Neurology [CONS] Routine Consulting Provider: Neurology [facility] Reason for Consult: Word-finding difficulty Call Completed: No Discharging clinician: Disha Ross Anticipated date of discharge: 07/06/17 - Constitutional Vitals: Temp Pulse Resp BP Pulse Ox 97.8 F 74 16 173/95 97 07/06/17 15:25 07/06/17 15:25 07/06/17 15:25 07/06/17 15:25 07/06/17 15:25 General appearance: Present: cooperative, A&O X 3, pleasant, answers questions appropriately - Head Head exam: Present: atraumatic, normocephalic - Eye Eye exam: Present: PERRL, conjuntiva pink, sclera anicteric Pupils: Present: PERRL - Neck Neck exam general surgery: Present: supple, trachea midline. Absent: lymphadenopathy - Respiratory Respiratory exam: Present: CTAB. Absent: accessory muscle use, rales, rhonchi, wheezes - Cardiovascular Cardiovascular exam: Present: RRR, +S1, +S2. Absent: diastolic murmur, gallop, rubs, systolic murmur - GI/Abdominal GI/Abdominal exam: Present: normal bowel sounds, soft, no peritoneal signs. Absent: distended, tenderness - Extremities Exam Extremities exam: Present: warm, radial pulses palpable and symmetrical. Absent : calf tenderness, cyanotic, pedal edema - Neurological Exam Neurological exam: Present: alert, CN II-XII intact, normal gait, oriented X3, no focal deficits, strengths equal and symetr throughout. Absent: pronater drift, facial droop, speech deficit - Skin Skin exam: Present: dry, intact, normal color, warm - Patient Status Disposition: Home, Self-Care Condition: Fair Functional capacity at discharge: independent ambulation Overall status at discharge: patient is progressing back to baseline - Discharge Instructions Follow Up With: Diana Giron MD [Primary Care Provider] - (appointment has been webrequested. our offices will call you with an appointment time and date ) - Diet and Activity Activity: increase activity as tolerated Diet: advance to your usual diet, low fat, low cholesterol
== END 2017-07-06 18:30 | disposition home or self-care (01) | DRG 66 ==
LOC: 3BNU 14:10 → EMEROO 14:10 → 3BNU 17:49
PROVIDERS: ADMIT Internal Medicine; ATTEND Registered Nurse